=== PATIENT | male | born 1960 | race American Indian/Alaskan Native ===

== ENCOUNTER 2018-04-09 13:50 | Emergency (ER) | payer MEDICAID, OTHER ==
--- NOTE | 2018-04-09 14:14 | EDM.PDOC ---
ED HPI GENERAL MEDICAL PROBLEM - General Chief Complaint: Cardiovascular Problem Stated Complaint: HYPERTENSION Time Seen by Provider: 04/09/18 13:58 Source of Information: Reports: Patient History Limitations: Reports: No Limitations - History of Present Illness INITIAL COMMENTS - FREE TEXT/NARRATIVE: This 58 yo male patient was brought to the ED by [facility] due to elevated blood pressure. EMS reported that the patient's blood pressure was initially 210/110 with a second blood pressure of 200/98. The patient reports that he had a kidney biopsy in [facility] in [place] yesterday. Dr. Fontaine increased the patient's blood pressure medication today to 2 x 50 mg of Metoprolol Succinate daily. The patient reports that he took his medication between 1000 and 1030 this morning. The patient reports that he walked to the ambulance prior to them taking his blood pressure. The patient reports that the home health nurse called for the ambulance after taking the patient's blood pressure. Onset: Today Duration: Constant Location: Reports: Other Quality: Reports: Other Severity: Mild Improves with: Reports: None Worsens with: Reports: None Associated Symptoms: Reports: No Other Symptoms Left Leg Pain Score (Numeric/FACES): 6 - Related Data Allergies Allergy/AdvReac Type Severity Reaction Status Date / Time Penicillins Allergy Rash Verified 08/19/13 22:45 Home Meds: Home Meds Acetaminophen/HYDROcodone [[place] 325-5 MG] 1 - 2 tab PO Q6H PRN 08/19/13 [ History] Lisinopril 20 mg PO DAILY 08/19/13 [History] Aspirin 04/09/18 [History] Cetirizine [ZyrTEC] 04/09/18 [History] HCTZ/Triamterene [Maxzide 50-75 MG] 04/09/18 [History] Ibuprofen 04/09/18 [History] Metoprolol Succinate [Toprol XL 100mg] 100 mg PO DAILY 04/09/18 [History] ED ROS GENERAL - Review of Systems Review Of Systems: ROS reveals no pertinent complaints other than HPI. ED EXAM, GENERAL - Physical Exam Exam: See Below Exam Limited By: No Limitations General Appearance: Alert, WD/WN, No Apparent Distress, Thin Eye Exam: Bilateral Eye: EOMI, Normal Inspection, PERRL Ears: Normal External Exam Nose: Normal Inspection, Normal Mucosa, No Blood, Other (healing laceration to the patient external left nose with no current bleeding) Throat/Mouth: Normal Inspection, Normal Lips, Normal Teeth, Normal Gums, Normal Oropharynx, Normal Voice, No Airway Compromise Head: Atraumatic, Normocephalic Neck: Normal Inspection, Supple, Non-Tender, Full Range of Motion Respiratory/Chest: No Respiratory Distress, Lungs Clear, Normal Breath Sounds, No Accessory Muscle Use, Chest Non-Tender Cardiovascular: Normal Peripheral Pulses, Regular Rate, Rhythm, No Edema, No Gallop, No JVD, No Murmur, No Rub GI/Abdominal: Normal Bowel Sounds, Soft, Non-Tender, No Organomegaly, No Distention, No Abnormal Bruit, No Mass (Male) Exam: Deferred Rectal (Males) Exam: Deferred Back Exam: Normal Inspection, Full Range of Motion, NT Extremities: Normal Inspection, Normal Range of Motion, Non-Tender, Normal Capillary Refill, No Pedal Edema Neurological: Alert, Oriented, CN II-XII Intact, Normal Cognition, Normal Gait, Normal Reflexes, No Motor/Sensory Deficits Psychiatric: Normal Affect, Normal Mood Skin Exam: Warm, Dry, Intact, Normal Color, No Rash Lymphatic: No Adenopathy Course - Vital Signs Last Recorded V/S: Last Vital Signs Temp 36.7 C 04/09/18 14:03 Pulse 63 04/09/18 14:03 Resp 16 04/09/18 14:03 BP 172/83 H 04/09/18 14:03 Pulse Ox 99 04/09/18 14:03 - Orders/Labs/Meds Orders: Active Orders 24 hr Category Date Time Status EKG Documentation Completion [RC] URGENT Care 04/09/18 13:53 Ordered CBC WITH AUTO DIFF [HEME] Urgent Lab 04/09/18 13:53 Ordered COMPREHENSIVE METABOLIC PN,CMP [CHEM] Urgent Lab 04/09/18 13:53 Ordered TROPONIN I [CHEM] Urgent Lab 04/09/18 13:53 Ordered Departure - Departure Time of Disposition: 14:53 Disposition: Home, Self-Care 01 Condition: Fair Clinical Impression: Hypertension Qualifiers: Hypertension type: essential hypertension Qualified Code(s): I10 - Essential ( primary) hypertension Instructions: Managing Your Hypertension, Hypertension, [id number] Forms: ED Department Discharge Care Plan Goals: The patient was advised of the examination, lab and EKG results during the visit. The patient was encouraged to continue to take his medications as directed by his primary care providers. If the patient has any additional symptoms or concerns, the patient should follow-up with his primary care facility or return to the emergency department. - My Orders Last 24 Hours: My Active Orders 04/09/18 13:53 EKG Documentation Completion [RC] URGENT CBC WITH AUTO DIFF [HEME] Urgent COMPREHENSIVE METABOLIC PN,CMP [CHEM] Urgent TROPONIN I [CHEM] Urgent - Assessment/Plan Last 24 Hours: My Active Orders 04/09/18 13:53 EKG Documentation Completion [RC] URGENT CBC WITH AUTO DIFF [HEME] Urgent COMPREHENSIVE METABOLIC PN,CMP [CHEM] Urgent TROPONIN I [CHEM] Urgent
[2018-04-09 14:39] LABS: ANION GAP 12.6; CHLORIDE,CL 105 mmol/L (101-111); SODIUM,NA 137 mmol/L (135-145)
== END 2018-04-09 15:06 | disposition home or self-care (01) ==
LOC: SUPCPDRO 13:50 → DL.ED 13:50
DX: I10 Essential (primary) hypertension (principal); Z79.899 Other long term (current) drug therapy; Z79.82 Long term (current) use of aspirin; Z88.0 Allergy status to penicillin
CPT/HCPCS: 36415; 80053; 84484; 85025; 93005; 99284

== ENCOUNTER 2018-04-11 09:18 | Emergency (ER) | payer MEDICAID ==
[2018-04-11] MEDS ORDERED: diphenhydrAMINE 50 MG/ML SDV IVPUSH ONE (09:20)
[2018-04-11] MEDS ORDERED: methylPREDNISolone Sodium Succinate 125 MG/2 ML SDV IVPUSH ONE (09:20)
--- NOTE | 2018-04-11 09:33 | EDM.PDOC ---
ED HPI GENERAL MEDICAL PROBLEM - General Stated Complaint: AMBULANCE / ALLERGIC REACTION Time Seen by Provider: 04/11/18 09:22 Source of Information: Reports: Patient History Limitations: Reports: No Limitations - History of Present Illness INITIAL COMMENTS - FREE TEXT/NARRATIVE: This 58 yo male patient reports to the ED with a reaction to a new blood pressure medication (Hydralazine). The patient reports that he took his first dose of the medication this morning and started to notice some swelling of his lips with difficulties speaking. The patient reports that he does not have any additional symptoms or any further concerns at this time. Onset: Today Duration: Minutes:, Constant Location: Reports: Face Quality: Reports: Other Severity: Moderate Improves with: Reports: None Worsens with: Reports: None Associated Symptoms: Reports: No Other Symptoms - Related Data Allergies Allergy/AdvReac Type Severity Reaction Status Date / Time Penicillins Allergy Rash Verified 04/11/18 09:28 Home Meds: Home Meds Aspirin 81 mg PO DAILY 04/09/18 [History] Cetirizine [ZyrTEC] 10 mg PO ASDIRECTED PRN 04/09/18 [History] Metoprolol Succinate [Toprol XL 100mg] 50 mg PO DAILY 04/09/18 [History] Acetaminophen [Tylenol Extra Strength] 1,000 mg PO ASDIRECTED PRN 04/11/18 [ History] hydrALAZINE [Apresoline] 100 mg PO BID 04/11/18 [History] Social & Family History - Caffeine Use Caffeine Use: Reports: Coffee, Soda ED ROS ALLERGIC REACTION - Review of Systems Review Of Systems: ROS reveals no pertinent complaints other than HPI. ED EXAM GENERAL NO PERIP PULSE - Physical Exam Exam: See Below Exam Limited By: No Limitations General Appearance: Alert, WD/WN, Mild Distress, Thin Eye Exam: Bilateral Eye: EOMI, Normal Inspection, PERRL Ears: Normal External Exam, Normal Canal, Hearing Grossly Normal, Normal TMs Nose: Normal Inspection, Normal Mucosa, No Blood Throat/Mouth: Other (swelling of the lips (left side worse than right) with a muffled voice) Neck: Normal Inspection, Supple, Non-Tender, Full Range of Motion Respiratory/Chest: No Respiratory Distress, Lungs Clear, Normal Breath Sounds, No Accessory Muscle Use, Chest Non-Tender Cardiovascular: Normal Peripheral Pulses, Regular Rate, Rhythm, No Edema, No Gallop, No JVD, No Murmur, No Rub GI/Abdominal: Normal Bowel Sounds, Soft, Non-Tender, No Organomegaly, No Distention, No Abnormal Bruit, No Mass (Male) Exam: Deferred Rectal (Males) Exam: Deferred Back Exam: Normal Inspection, Full Range of Motion, NT Extremities: Normal Inspection, Normal Range of Motion, Non-Tender, Normal Capillary Refill, No Pedal Edema Neurological: Alert, Oriented, CN II-XII Intact, Normal Cognition, Normal Gait, Normal Reflexes, No Motor/Sensory Deficits Psychiatric: Normal Affect, Normal Mood Skin Exam: Warm, Dry, Intact, Normal Color, No Rash Lymphatic: No Adenopathy Course - Vital Signs Last Recorded V/S: Last Vital Signs Temp 36.6 C 04/11/18 09:18 Pulse 85 04/11/18 09:18 Resp 18 04/11/18 09:18 BP 145/83 H 04/11/18 09:18 Pulse Ox 100 04/11/18 09:18 - Orders/Labs/Meds Labs: Laboratory Tests 04/11/18 04/11/18 Range/Units 09:32 09:32 WBC 6.5 (5.0-10.0) 10^3/uL RBC 3.79 L (4.6-6.2) 10^6/uL Hgb 12.9 L (14.0-18.0) g/dL Hct 38.0 L (40.0-54.0) % MCV 100.3 H (80-100) fL MCH 34.0 (27.0-34.0) pg MCHC 33.9 (33.0-35.0) g/dL Plt Count 260 (150-450) 10^3/uL Neut % (Auto) 73.0 (42.2-75.2) % Lymph % (Auto) 16.7 L (20.5-50.1) % [place] % (Auto) 6.6 (2-8) % Eos % (Auto) 3.5 H (1.0-3.0) % Baso % (Auto) 0.2 (0.0-1.0) % Sodium 138 (135-145) mmol/L Potassium 4.1 (3.6-5.0) mmol/L Chloride 106 (101-111) mmol/L Carbon Dioxide 22.0 (21.0-31.0) mmol/L Anion Gap 14.1 BUN 34 H (7-18) mg/dL Creatinine 1.8 H (0.6-1.3) mg/dL Est Cr Clr Drug Dosing 42.19 mL/min Estimated GFR (MDRD) 39 BUN/Creatinine Ratio 18.88 Glucose 96 (74-105) mg/dL Calcium 9.3 (8.4-10.2) mg/dl Total Bilirubin 0.5 (0.2-1.0) mg/dL AST 17 (10-42) IU/L ALT 12 (10-60) IU/L Alkaline Phosphatase 73 (42-121) IU/L Total Protein 8.4 H (6.7-8.2) g/dl Albumin 4.5 (3.2-5.5) g/dl Globulin 3.9 Albumin/Globulin Ratio 1.15 Meds: Medications Discontinued Medications Generic Name Dose Route Start Last Admin Trade Name Freq PRN Reason Stop Dose Admin Diphenhydramine HCl 50 mg 04/11/18 09:20 04/11/18 09:34 Benadryl IVPUSH 04/11/18 09:21 50 mg ONETIME ONE Administration Methylprednisolone Sodium Succinate 125 mg 04/11/18 09:20 04/11/18 09:32 Solu-Medrol IVPUSH 04/11/18 09:21 125 mg ONETIME ONE Administration Departure - Departure Time of Disposition: 10:53 Disposition: Home, Self-Care 01 Condition: Fair Clinical Impression: Allergic reaction caused by a drug Qualifiers: Encounter type: initial encounter Qualified Code(s): T78.40XA - Allergy, unspecified, initial encounter Angioedema Qualifiers: Encounter type: initial encounter Qualified Code(s): T78.3XXA - Angioneurotic edema, initial encounter - Discharge Information *PRESCRIPTION DRUG MONITORING PROGRAM REVIEWED*: Not Applicable *COPY OF PRESCRIPTION DRUG MONITORING REPORT IN PATIENT VANESSA: Not Applicable Instructions: Angioedema, [id number] Forms: ED Department Discharge Care Plan Goals: The patient was advised of the examination and lab results during the visit. The patient was given an IV dose of Benadryl and SoluMedrol while in the ED. The patient was discharged with scripts for Benadryl (25 mg) #20 to take 1 by mouth every 6 hours until gone and Prednisone (20 mg) # 10 to take 2 by mouth daily for 5 days. The patient should stop taking Hydralazine and contact his primary care facility to report his allergic reaction to the medication. If the patient has any additional symptoms or concerns, the patient should visit his primary care facility or return to the emergency department.
[2018-04-11 10:20] LABS: ANION GAP 14.1
== END 2018-04-11 11:29 | disposition home or self-care (01) ==
LOC: DL.ED 09:18
DX: T78.3XXA Angioneurotic edema, initial encounter (principal); T46.5X5A Adverse effect of other antihypertensive drugs, initial encounter; Z79.82 Long term (current) use of aspirin; Z88.0 Allergy status to penicillin
CPT/HCPCS: 36415; 80053; 85025; 96374; 96375; 99284; J1200; J2930